=== PATIENT | male | born 1995 | race Caucasian/White ===

== ENCOUNTER 2016-12-11 19:14 | Emergency (ER) | payer OTHER ==
[~2016-12-11] VITALS: Ht 180.3 cm; Wt 65.6 kg
[2016-12-11 19:17] VITALS: BP 133/86
== END 2016-12-11 21:26 | disposition home or self-care (01) ==
LOC: ED 21:00
DX: L03.311 Cellulitis of abdominal wall (principal)
CPT/HCPCS: 10060; 76705

== ENCOUNTER 2020-10-19 07:25 | Emergency (ER) | payer MEDICARE, OTHER ==
[~2020-10-19] VITALS: Ht 177.8 cm; Wt 61.3 kg
[2020-10-19 07:32] VITALS: BP 123/78
== END 2020-10-19 08:18 | disposition home or self-care (01) ==
LOC: ED 08:12
DX: N50.812 Left testicular pain (principal)
CPT/HCPCS: 99281